=== PATIENT | female | born 1940 | race Caucasian/White ===

== ENCOUNTER → 2016-07-06 | Outpatient (CLI) | payer OTHER ==
[~2016-07-06] VITALS: Ht 157.5 cm; Wt 105.2 kg
[~2016-07-06] MED LIST: AMARYL4 MG PO; ARIMIDEX1 MG PO; ASPIR 8181 MG PO; ATORVASTATIN CA40 MG PO; CALCIUM 500 +1 EAC5 PO; CO Q-10400 MG PO; FISH OIL 1,2001 EAC3 PO; METFORMIN HCL850 MG PO; MULTIVITAMINS1 EAC7 PO; NEURONTIN300 MG PO; PRINIVIL40 MG PO; TRICOR145 MG PO; VITAMIN B-121000 MCG PO
--- NOTE | ~2016-07-06 | P ---
[facility] [place] [address] PROCEDURE REPORT Name: JANNETTE KLEIN Room #: REG [facility]#: [id number] Admission: 07/06/16 Attend Phys: Vasquez Rogers MD Discharge: Date of : 38 Report #: [id number] THIS REPORT FOR: //name// CC: Dagmar Gutierrez DATE OF SERVICE: 07/06/2016 BRIEF HISTORY: The patient is a 76-year-old woman with personal history of colon polyps and personal history of breast cancer, both her parents had colon cancer. PREOPERATIVE DIAGNOSIS: Family history of colon cancer, personal history of colon polyps. POSTOPERATIVE DIAGNOSES: 1. A 5 mm flat polyp, proximal ascending colon. 2. Diminutive polyp at splenic flexure. SPECIMEN: 1. Polyp from proximal ascending colon. 2. Polyp, splenic flexure. ESTIMATED BLOOD LOSS: 3 mL. PROCEDURE: Colonoscopy to cecum and terminal ileum with biopsy. FINDINGS: Prior to propofol sedation, procedure of colonoscopy discussed with the patient as well as potential risks and its complications. She indicates she understands and desires to proceed. DESCRIPTION OF PROCEDURE: With the patient in left lateral decubitus position, digital examination was completed which revealed no abnormalities. Subsequently, the [employer] video colonoscope was introduced into the rectum and advanced under direct vision to the cecum. Done with minimal difficulty. The cecum was identified by the ileocecal valve and the appendiceal orifice. I was able to visualize the distal segment of terminal ileum, which was inspected and noted to be unremarkable. At that point, the scope was slowly withdrawn and careful circumferential views were obtained. Upon slow withdrawal of the scope, the prep was noted to be good. The mucosa was normal limits, normal vascular pattern, normal light reflex. As we withdrew the scope in the proximal ascending colon, a flat 4-5 mm polyp was seen and removed by biopsy. Scope was further withdrawn and no additional polyps were seen until splenic flexure was reached at which point, a diminutive polyp was seen and removed by biopsy. Scope was further withdrawn and no additional polyps were seen. The scope was [facility] [address] [place] [address] PROCEDURE REPORT Name: ERNIEJANNETTE ANKIT Room #: REG [facility].#: [id number] Admission: 07/06/16 Attend Phys: Vasquez Rogers MD Discharge: Date of : 38 Report #: [id number] withdrawn in the rectum. Upon retroflexion, no abnormalities were seen. Scope was withdrawn. The patient tolerated the procedure well. CONDITION OF THE PATIENT UPON DISCHARGE: Following procedure, the patient drowsy, aroused, conversant and will be discharged home when fully ambulatory. INSTRUCTIONS TO THE PATIENT AND FAMILY AT THE TIME OF DISCHARGE: Two small polyps identified and removed as described above. We will follow up on the path report. However, in view of her personal history of polyps and family history of colon cancer and personal history of breast cancer, we will have her return in 3 years for followup colon exam. She will otherwise return to care of Dr. Dagmar Ricks. <ELECTRONICALLY SIGNED> By: Vasquez Rogers MD 07/10/16 1224 [id number] [id number] Vasquez Rogers MD /nt
--- NOTE | ~2016-07-06 | S ---
[facility] [place] [address] SURGICAL PATH RPT PROCEDURE Name: VIOLETTE KLEIN Room #: REG [facility]#: [id number] Admission: 07/06/16 Date of : 38 Discharge: Report #: [id number] Path Case #: [id number] PATHOLOGY REPORT COLLECTION DATE: 07/06/2016 RECEIVED DATE: 07/06/2016 SUBMITTING PHYS: Dr. Vasquez Rogers OTHER PHYS: Dr. Dagmar Ricks SPECIMEN(S) RECEIVED: A.Proximal ascending polyp B.Splenic flexure polyp * * * * * * * * * * * * FINAL DIAGNOSIS: A. Polyp, proximal ascending polyp, endoscopic biopsy: - Hyperplastic polyp and a lymphoid aggregate. - Negative for dysplasia. B. Polyp, splenic flexure, endoscopic biopsy: - Hyperplastic polyp. - Negative for dysplasia. (IUV:csd; d/t: 07/09/2016) PATHOLOGIST: Marivel Pope M.D. REPORT ELECTRONICALLY SIGNED BY: Marivel Pope M.D. DATE/TIME: 07/09/2016 16:38 * * * * * * * * * * * * GROSS PATHOLOGY: A. Received in formalin labeled "Violette Klein, proximal ascending colon," and additionally labeled on the requisition as, "proximal ascending polyp". Received are two segments of fernandez soft tissue measuring 0.5 x 0.4 x 0.1 cm in aggregate dimensions and ranging from 0.3 to 0.4 cm in maximum dimension. The specimen is submitted entirely in cassette A1. B. Received in formalin labeled "Violette Klein, splenic flexure," is a segment of fernadnez soft tissue measuring 0.6 cm in maximum dimension. The specimen is submitted entirely in cassette B1. (CAA; 07/06/2016) CLINICAL HISTORY: History of polyps, family history of colon cancer INITIAL CPT CODE(S): A; [address] [facility] [place] [address] SURGICAL PATH RPT PROCEDURE Name: VIOLETTE KLEIN Room #: REG [facility].#: [id number] Admission: 07/06/16 Date of : 38 Discharge: Report #: [id number] Path Case #: [id number]; [id number] Professional services performed by [facility] at [address] , [place] [address] Technical services performed by [facility] at [address] [place] [address], [facility] [address] [address]. [facility] [address] [place] [address] PHONE: [phone] DIRECTOR: Waldo Barnes M.D. * * * END OF REPORT * * *
== END ==
LOC: GI 06:26
DX: Z12.11 Encounter for screening for malignant neoplasm of colon (principal); K63.5 Polyp of colon; I10 Essential (primary) hypertension; E78.00 Pure hypercholesterolemia, unspecified; G47.33 Obstructive sleep apnea (adult) (pediatric); Z85.038 Personal history of other malignant neoplasm of large intestine; Z85.3 Personal history of malignant neoplasm of breast; Z87.891 Personal history of nicotine dependence; Z80.0 Family history of malignant neoplasm of digestive organs
CPT/HCPCS: 62110; 62900